=== PATIENT | female | born 1960 | race Caucasian/White ===

== ENCOUNTER 2017-01-20 04:33 | Emergency (ER) | payer OTHER ==
[~2017-01-20] VITALS: Ht 172.7 cm; Wt 104.3 kg
--- NOTE | 2017-01-20 04:50 | NUR ---
Patient to ER bed 07 to gown for evaluation. Side rails up. Report given to Vidya.
[2017-01-20 04:54] VITALS: BP 166/129; PULSE 103; RESP 16; TEMP 98.1; O2SAT 99
--- NOTE | 2017-01-20 05:00 | NUR ---
pt in bed 7 with c/o h/a and high bp. Dr Chevy love.
--- NOTE | 2017-01-20 05:22 | NUR ---
ER at bedside examining patient.
[2017-01-20] MEDS ORDERED: ACETAMINOPHEN 500 MG TABLET PO ONE (05:30)
[2017-01-20] MEDS ORDERED: KETOROLAC TROMETHAMINE 30 MG VIAL IVP ONE (05:30)
[2017-01-20] MEDS ORDERED: DIPHENHYDRAMINE INJ 50 MG/ML VIAL IVP ONE (05:30)
[2017-01-20] MEDS ORDERED: PROCHLORPERAZINE EDISYLATE 10 MG/2 ML VIAL IVP ONE (05:30)
[2017-01-20] MEDS ORDERED: METOPROLOL TARTRATE 25 MG TABLET PO ONE (05:45)
[2017-01-20] MEDS ORDERED: LOSARTAN POTASSIUM 50 MG TABLET (COZAAR) PO ONE ×2 (05:45→06:15)
--- NOTE | 2017-01-20 05:45 | NUR ---
Medication given as per MD Ordered. Tolerated well.
[2017-01-20] MEDS ORDERED: NAPROXEN 250 MG TABLET PO ONE (06:00)
[2017-01-20] MEDS ORDERED: traMADol HCL HCL 50 MG TABLET (ULTRAM) PO ONE (06:00)
[2017-01-20] MEDS ORDERED: LOSARTAN POTASSIUM 50 MG TABLET (COZAAR) ONE (06:02)
--- NOTE | 2017-01-20 06:10 | NUR ---
ER at bedside examining patient.
[2017-01-20 06:42] LABS: BASOPHILS % (AUTO) 0.8 % (0.0-2.0); EOSINOPHILS # (AUTO) 0.1 K/uL (0.0-0.4); EOSINOPHILS % (AUTO) 1.8 % (0.0-4.0); HEMATOCRIT 42.5 % (36-48); LYMPHOCYTES # (AUTO) 0.9 K/uL (1.0-5.5); LYMPHOCYTES % (AUTO) 14.5 % (20.5-51.5); MEAN CORPUSCULAR HEMOGLOBIN 29 pg (27-31); MEAN CORPUSCULAR HGB CONC 33 % (32-36); MEAN CORPUSCULAR VOLUME 87 fL (79.0-98.0); MONOCYTES # (AUTO) 0.3 K/uL (0.0-1.0); MONOCYTES % (AUTO) 5.6 % (1.7-9.3); NEUTROPHILS # (AUTO) 4.9 K/uL (1.8-7.7); NEUTROPHILS % (AUTO) 77.3 % (40.0-70.0); PLATELET COUNT (AUTO) 120 K/uL (130-430); RED BLOOD CELL COUNT(AUTO) 4.91 MIL/uL (4.2-6.2); RED CELL DISTRIBUTION WIDTH 14.5 % (9.0-15.0); WHITE BLOOD COUNT (AUTO) 6.2 K/uL (4.8-10.8)
[2017-01-20 06:48] LABS: CREATININE 0.7 mg/dL (0.55-1.30); POTASSIUM 4.1 mmol/L (3.5-5.1)
[2017-01-20 06:53] LABS: ALBUMIN 3.7 g/dL (3.4-4.8); TOTAL BILIRUBIN 0.5 mg/dL (0.0-1.0); TOTAL PROTEIN, SERUM 7.6 g/dL (6.4-8.3)
--- NOTE | 2017-01-20 07:11 | NUR ---
received pt from evening or night nurse supervisor Vidya HAMPTON.
--- NOTE | 2017-01-20 07:12 | NUR ---
pt is lying in bed resting.awake alert oritented,no distress noted.
[2017-01-20 07:20] VITALS: BP 133/88; PULSE 58; RESP 18; TEMP 98.9; O2SAT 99
--- NOTE | 2017-01-20 07:20 | NUR ---
Patient given written and verbal discharge instructions and verbalizes understanding. ER MD discussed with patient the results and treatment provided. Given copies of tests performed in ER. Patient in stable condition. ID arm band removed. Rx of given. Patient educated on pain management and to follow up with PMD. Pain Scale . Opportunity for questions provided and answered.
== END 2017-01-20 07:20 | disposition home or self-care (01) ==
LOC: SED 04:33
DX: I10 Essential (primary) hypertension (principal); R11.2 Nausea with vomiting, unspecified
CPT/HCPCS: 36415; 80053; 85025; 93005; 99285

== ENCOUNTER 2017-02-05 08:56 | Emergency (ER) | payer OTHER ==
[~2017-02-05] VITALS: Ht 172.7 cm; Wt 99.8 kg
[2017-02-05 09:08] VITALS: BP 159/101; PULSE 84; RESP 16; TEMP 97.4; O2SAT 98
--- NOTE | 2017-02-05 09:13 | NUR ---
Placed in room 2 . Placed on supervisor instrument mechanics, blood pressure machine and pulse oximeter. To gown for exam. Side rails up. Report given to Bunny HAMPTON.
--- NOTE | 2017-02-05 09:15 | NUR ---
ER at bedside examining patient.
--- NOTE | 2017-02-05 09:17 | NUR ---
Pt AAOx 4 c/o palpitations and htn.Pt has recent diagnosis of htn and one day of taking antihypertensives. Pt has no acute distress noted. EKG done NSR given to to read. Pt speaking in full sentences w/o SOB.
--- NOTE | 2017-02-05 09:44 | NUR ---
Pt received orthostatic VS. Pt tolerated well. Pt denies dizziness.
[2017-02-05 09:55] LABS: BASOPHILS % (AUTO) 0.5 % (0.0-2.0); EOSINOPHILS # (AUTO) 0.1 K/uL (0.0-0.4); EOSINOPHILS % (AUTO) 1.7 % (0.0-4.0); HEMATOCRIT 42.2 % (36-48); HEMOGLOBIN 14.1 g/dL (12.0-16.0); LYMPHOCYTES # (AUTO) 0.9 K/uL (1.0-5.5); LYMPHOCYTES % (AUTO) 18.9 % (20.5-51.5); MEAN CORPUSCULAR HEMOGLOBIN 28 pg (27-31); MEAN CORPUSCULAR HGB CONC 34 % (32-36); MEAN CORPUSCULAR VOLUME 84 fL (79.0-98.0); MONOCYTES # (AUTO) 0.3 K/uL (0.0-1.0); MONOCYTES % (AUTO) 6.3 % (1.7-9.3); NEUTROPHILS # (AUTO) 3.7 K/uL (1.8-7.7); NEUTROPHILS % (AUTO) 72.6 % (40.0-70.0); PLATELET COUNT (AUTO) 109 K/uL (130-430); RED BLOOD CELL COUNT(AUTO) 5.05 MIL/uL (4.2-6.2); RED CELL DISTRIBUTION WIDTH 14.4 % (9.0-15.0)
[2017-02-05 10:01] LABS: CALCIUM 9.5 mg/dL (8.4-11.0); CREATININE 0.86 mg/dL (0.55-1.30); POTASSIUM 4.7 mmol/L (3.5-5.1)
[2017-02-05 10:16] LABS: ALBUMIN 4.1 g/dL (3.4-4.8); FREE T4 (FREE THYROXINE) 0.9 ng/dL (0.6-1.6); THYROID STIMULATING HORMONE 1.69 uIu/mL (0.34-4.82); TOTAL BILIRUBIN 0.6 mg/dL (0.0-1.0); TOTAL PROTEIN, SERUM 7.9 g/dL (6.4-8.3)
--- NOTE | 2017-02-05 10:30 | NUR ---
Pt's BP WNL , no acute distress at this time, continuing to monitor.
[2017-02-05 11:25] VITALS: BP 129/72; PULSE 72; RESP 16; TEMP 97.4; O2SAT 98
--- NOTE | 2017-02-05 11:25 | NUR ---
Patient given written and verbal discharge instructions and verbalizes understanding. ER MD discussed with patient the results and treatment provided. Patient in stable condition. ID arm band removed. Patient educated on pain management and to follow up with PMD. Pain Scale 0/10 . Opportunity for questions provided and answered.
== END 2017-02-05 11:25 | disposition home or self-care (01) ==
LOC: SED 08:56
DX: R00.2 Palpitations (principal); R07.89 Other chest pain; I10 Essential (primary) hypertension
CPT/HCPCS: 36415; 71010; 80053; 80061; 83880; 84439; 84443-TC; 84484; 85025; 93005; 99285

== ENCOUNTER 2017-02-18 00:37 | Emergency (ER) | payer OTHER ==
[~2017-02-18] VITALS: Ht 172.7 cm; Wt 95.3 kg
[2017-02-18 00:40] VITALS: BP_SYST 157
[2017-02-18] MEDS ORDERED: LORazepam 1 MG TABLET PO ONE (01:45)
[2017-02-18 02:09] LABS: EOSINOPHILS # (AUTO) 0.1 K/uL (0.0-0.4); LYMPHOCYTES # (AUTO) 1.3 K/uL (1.0-5.5); MEAN CORPUSCULAR VOLUME 85 fL (79.0-98.0); MONOCYTES # (AUTO) 0.4 K/uL (0.0-1.0); NEUTROPHILS # (AUTO) 3.6 K/uL (1.8-7.7); WHITE BLOOD COUNT (AUTO) 5.4 K/uL (4.8-10.8)
[2017-02-18 02:14] LABS: BASOPHILS % (AUTO) 0.7 % (0.0-2.0); EOSINOPHILS % (AUTO) 2.1 % (0.0-4.0); HEMATOCRIT 41.4 % (36-48); HEMOGLOBIN 13.7 g/dL (12.0-16.0); LYMPHOCYTES % (AUTO) 24.2 % (20.5-51.5); MEAN CORPUSCULAR HEMOGLOBIN 28 pg (27-31); MEAN CORPUSCULAR HGB CONC 33 % (32-36); MONOCYTES % (AUTO) 7.6 % (1.7-9.3); NEUTROPHILS % (AUTO) 65.4 % (40.0-70.0); RED BLOOD CELL COUNT(AUTO) 4.86 MIL/uL (4.2-6.2); RED CELL DISTRIBUTION WIDTH 13.7 % (9.0-15.0)
[2017-02-18 02:21] LABS: CALCIUM 9.6 mg/dL (8.4-11.0); CREATININE 0.78 mg/dL (0.55-1.30); POTASSIUM 4.3 mmol/L (3.5-5.1)
[2017-02-18 02:26] LABS: TOTAL BILIRUBIN 0.5 mg/dL (0.0-1.0); TOTAL PROTEIN, SERUM 7.5 g/dL (6.4-8.3)
[2017-02-18] MEDS ORDERED: NACL 0.9% 1,000 ML IV ONE (02:30)
[2017-02-18 02:42] LABS: PLATELET COUNT (AUTO) 98 K/uL (130-430)
[2017-02-18 03:46] VITALS: BP_SYST 157
== END 2017-02-18 03:46 | disposition home or self-care (01) ==
LOC: SED 00:37
DX: R51 Headache (principal); I10 Essential (primary) hypertension
CPT/HCPCS: 36415; 70450; 80053; 85025; 96360; 99285; J7030

== ENCOUNTER 2017-02-20 00:52 | Emergency (ER) | payer OTHER ==
[~2017-02-20] VITALS: Ht 172.7 cm; Wt 95.3 kg
[2017-02-20 00:55] VITALS: BP_SYST 144
[2017-02-20 02:15] VITALS: BP_SYST 133
[2017-02-21 15:27] LABS: ABG TOTAL HEMOGLOBIN 14.4 G/dL (12.0-18.0); BLOOD GAS BASE EXCESS -1.5 mmol/L (-3.0-3.0); BLOOD GAS COHb% 0.2 % (0.5-1.5); BLOOD GAS HHB 4.1 % (0.0-6.0); BLOOD O2Hb% 95.4 % (94.0-97.0)
== END 2017-02-20 02:15 | disposition home or self-care (01) ==
LOC: SED 00:52
DX: Z00.8 Encounter for other general examination (principal); I10 Essential (primary) hypertension
CPT/HCPCS: 36600; 82803-TC; 99283

== ENCOUNTER 2017-03-03 00:12 | Inpatient (IN) | payer OTHER ==
[2017-03-03] VITALS (9 sets, daily range): BP systolic 106–166; BP diastolic 67–92; PULSE 74–96; RESP 16–20; TEMP 97–98.9; O2SAT 93–98
[~2017-03-03] VITALS: Ht 172.7 cm; Wt 98.4 kg
--- NOTE | 2017-03-03 00:25 | NUR ---
Placed in room 8 . Placed on library monitor, blood pressure machine and pulse oximeter. To gown for exam. Side rails up.
--- NOTE | 2017-03-03 00:26 | NUR ---
MD Vu at bedside examining pt
[2017-03-03 01:07] LABS: BILIRUBIN,URINE NEGATIVE (NEGATIVE); BLOOD, URINE 1+ (NEGATIVE); CLARITY/URINE CLEAR (CLEAR); COLOR,URINE YELLOW (YELLOW); GLUCOSE,URINE NEGATIVE (NEGATIVE); KETONES,URINE NEGATIVE (NEGATIVE); LEUKOCYTE ESTERASE ,URINE TRACE (NEGATIVE); NITRITE, URINE NEGATIVE (NEGATIVE); PROTEIN URINE NEGATIVE (NEGATIVE); UROBILINOGEN,URINE 0.2 (0.2-1.0)
[2017-03-03 01:09] LABS: BASOPHILS % (AUTO) 0.5 % (0.0-2.0); EOSINOPHILS # (AUTO) 0.1 K/uL (0.0-0.4); EOSINOPHILS % (AUTO) 2.1 % (0.0-4.0); HEMATOCRIT 43.5 % (36-48); HEMOGLOBIN 14.4 g/dL (12.0-16.0); LYMPHOCYTES # (AUTO) 1.5 K/uL (1.0-5.5); LYMPHOCYTES % (AUTO) 25.2 % (20.5-51.5); MEAN CORPUSCULAR HEMOGLOBIN 28 pg (27-31); MEAN CORPUSCULAR HGB CONC 33 % (32-36); MEAN CORPUSCULAR VOLUME 85 fL (79.0-98.0); MONOCYTES # (AUTO) 0.4 K/uL (0.0-1.0); MONOCYTES % (AUTO) 7.6 % (1.7-9.3); NEUTROPHILS # (AUTO) 3.9 K/uL (1.8-7.7); NEUTROPHILS % (AUTO) 64.6 % (40.0-70.0); RED BLOOD CELL COUNT(AUTO) 5.15 MIL/uL (4.2-6.2); RED CELL DISTRIBUTION WIDTH 13.7 % (9.0-15.0); WHITE BLOOD COUNT (AUTO) 5.9 K/uL (4.8-10.8)
[2017-03-03 01:17] LABS: CALCIUM 9.5 mg/dL (8.4-11.0); CREATININE 0.88 mg/dL (0.55-1.30); PLATELET COUNT (AUTO) 98 K/uL (130-430); POTASSIUM 3.6 mmol/L (3.5-5.1)
[2017-03-03 01:21] LABS: BACTERIA,URINE FEW /HPF (None Seen); MUCUS,URINE None Seen /LPF (None Seen); RBC,URINE 0-3 /HPF (0-3)
--- NOTE | 2017-03-03 01:25 | NUR ---
Pt in bed, denies distress. Will continue to monitor
[2017-03-03 01:33] LABS: FREE T4 (FREE THYROXINE) 1.2 ng/dL (0.6-1.6); THYROID STIMULATING HORMONE 1.97 uIu/mL (0.34-4.82); TOTAL BILIRUBIN 0.9 mg/dL (0.0-1.0); TOTAL PROTEIN, SERUM 7.8 g/dL (6.4-8.3)
[2017-03-03] MEDS ORDERED: LISI10TA5 PO (02:48)
--- NOTE | 2017-03-03 02:48 | NUR ---
Medication reconciliation completed with information provided by - verbal from patient. Any prior medication reconciliation on file was reviewed and corrected.
[2017-03-03] MEDS ORDERED: IPRATROPIUM BROM 0.5 MG/2.5 ML VIAL.NEB (ATROVENT) INH PRN (03:15)
[2017-03-03] MEDS ORDERED: ALBUTEROL SULFATE 0.083% 2.5 MG/3 ML VIAL.NEB INH PRN (03:15)
--- NOTE | 2017-03-03 03:20 | NUR ---
Patient will be admitted to care of DR TELLES. Admitted to MS unit. Will go to room 135. Belongings list completed. Summary report printed. Report given to BERTA.
--- NOTE | 2017-03-03 03:38 | NUR ---
Note kinjal in ED - 03/03/17 at 0358 by [email or web address] Patient will be admitted to care of . Admitted to med-surg unit. Will go to room 125B. Belongings list completed. Summary report printed. Report given to renuka HAMPTON.
--- NOTE | 2017-03-03 03:42 | NUR ---
ADMISSION NOTE Received patient from ER via gurney. Patient admitted with diagnosis of neck mass. Patient is awake, alert, oriented X4. Patient oriented to hospital room, call light, toileting, pain management and safety-teach back done. Patient informed that Philipp RN will be her nurse and that their room number is 125B. Personal belongings checked and Belongings List documented. Call light within reach.
--- NOTE | 2017-03-03 04:02 | NUR ---
Consult Called Reason for Consultation: Neck Mass Was consult Called? Yes Person who was notified:Paulo Consulting Physician: Marcus Grubbs MD ( Dr. Hare research home economist) Prescription Clerk Lenses Specialty: Otolaryngology Prescription Clerk Lenses Order by Dr Lind
--- NOTE | 2017-03-03 05:42 | NUR ---
ROUNDS PT IS RESTING COMFORTABLY IN BED WITH @ BEDSIDE. NO S/S OF PAIN OR ANY DISTRESS NOTED. BED IN LOW POSITION WITH CALL LIGHT WITHIN REACH;WILL CONT TO MONITOR.
--- NOTE | 2017-03-03 06:55 | NUR ---
FINAL NOTES PT IS RESTING COMFORTABLY WITH @ BEDSIDE. NO S/S OF PAIN OR ANY DISTRESS NOTED. V/S ARE WITHIN LIMITS. ALL NEEDS MET AND ANTICIPATED BY NOC NURSES. BED IN LOW POSITION WITH SIDE UP X3 FOR SAFETY. CALL LIGHT WITHIN REACH; ENDORSED.
--- NOTE | 2017-03-03 07:42 | NUR ---
AM Rounds: Received pt sitting semi-fowlers in bed. No acute signs of distress noted at this time. IV intact to RUE with no redness or swelling noted to site. A&Ox4. Pt denies pain. Pt is able to make needs known and verbalize understanding. Call light in reach. Continue to monitor.
--- NOTE | 2017-03-03 08:12 | NUR ---
CALLED SPEECH THERAPY CONSULT TO ANTHONY RE: SWALLOWING EVAL . LEFT A VOICE MESSAGE
--- NOTE | 2017-03-03 09:03 | NUR ---
CALLED ENDOCRINE CONSULT TO DR JOAQUIN, RE: LUANN. SPOKE TO GWYN
[2017-03-03] MEDS: LISINOPRIL 10 MG TABLET (PRINIVIL) PO SCH (09:06)
--- NOTE | 2017-03-03 09:26 | NUR ---
RN Rounds: AM meds given per MD order. Pt tolerates well. Pt refuse CT of head, Dr. Lind aware. No other needs noted at this time. Call light in reach. Continue to monitor.
[2017-03-03 10:01] LABS: FREE T4 (FREE THYROXINE) 1.2 ng/dL (0.6-1.6); THYROID STIMULATING HORMONE 2.35 uIu/mL (0.34-4.82)
[2017-03-03] MEDS: cefTRIAXone 1 GM IVPB PREMIX 50 ML IV SCH (10:07)
--- NOTE | 2017-03-03 11:37 | NUR ---
Called Dr. Lind: Called Dr. Lind to make her aware that Dr. Hare wants to speak with her regarding the patient at [phone]. Dr. Lind states "Ok I'll call you later for the number. Put the consult on hold for now". Pt sitting semi-fowlers in bed. No acute signs of distress noted. Call light in reach. Continue to monitor.
--- NOTE | 2017-03-03 13:35 | NUR ---
Rounds: Pt sitting semi-fowlers in bed. No acute signs of distress noted at this time. IV intact to RUE with no redness or swelling noted to site. Call light in reach. Continue to monitor.
--- NOTE | 2017-03-03 14:40 | NUR ---
CALLED ENT MD DR FERRER, FLAT OPTICAL ELEMENT MAKER FOR DR RAMONA Ruth RE: CANCELLATION OF CONSULT. SPOKE TO AJMAL
--- NOTE | 2017-03-03 15:04 | NUR ---
ANTHONY SPEECH THERAPIST WILL COME TOMORROW MORNING 03/04/2017
--- NOTE | 2017-03-03 15:53 | NUR ---
Rounds: Pt sitting semi-fowlers in bed. No acute signs of distress noted at this time. IV intact to RUE. Call light in reach. Dr. Martínez here to see patient. Continue to monitor.
--- NOTE | 2017-03-03 16:11 | NUR ---
Page Dr. Lind: Page Dr. Lind to make her aware that Dr. Martínez will not see patient. Awaiting page back at this time.
--- NOTE | 2017-03-03 18:22 | NUR ---
Page Dr. Lind: Spoke with Dr. Sue, he will be back tomorrow to see patient. Called Dr. Lind to request consult for Dr. Sue. Awaiting page back.
--- NOTE | 2017-03-03 19:25 | NUR ---
initial nursing notes: Patient is awake. Patient is watching television. Patient has a saline lock on the right AC. Patient's family member at the bedside.
--- NOTE | 2017-03-03 21:25 | NUR ---
nursing rounds: Patient is resting in bed. Patient denies of having pain.
--- NOTE | 2017-03-03 22:42 | NUR ---
Consultation Paged Reason for consult: Goiter Was consult called: Yes Person who was notified: Summer Consulting Physician: Lorne Sanchez Medical Writer Specialty: Endo Medical Writer notified exchange to place consult for the morning of 03/04/2017.
--- NOTE | 2017-03-03 23:25 | NUR ---
nursing rounds: Patient is asleep. Patient has no shortness of breath.
--- NOTE | 2017-03-03 23:45 | NUR ---
PATIENT FAMILY MEMBER AT BED SIDE STATED THE PATIENT NEEDS HER REST
--- NOTE | 2017-03-04 01:25 | NUR ---
nursing rounds: Patient is sleeping in bed. Patient has no respiratory distress.
--- NOTE | 2017-03-04 03:25 | NUR ---
nursing rounds: Patient asleep in bed. Bed in lowest position. Siderails up X 2.
--- NOTE | 2017-03-04 05:25 | NUR ---
nursing rounds: Patient calmly resting in bed. Call light within patient's reach.
[2017-03-04 05:35] VITALS: BP 127/74; PULSE 76; RESP 16; TEMP 97.6; O2SAT 98
--- NOTE | 2017-03-04 07:43 | NUR ---
closing nursing notes: Patient calmly resting in bed. Patient is in no acute respiratory distress. No episodes of fall and no injuries throughout the porcelain enamel sprayer. Provided nursing report to incoming morning shift nurse, BERTA Hagen, at patient's bedside.
--- NOTE | 2017-03-04 08:25 | NUR ---
AM ROUNDS Pt A/O..sitting up in bed..Denies pain at this time...HL to RAC flushes well..Pt denies difficulty swallowing..Pt ambulates ad gallo with steady gait...Pt has a noticeable bump to left neck, denies pain...Awaiting swallow evaluation and biopsy...Call light/phone w/in reach...Will cont to monitor
[2017-03-04 08:42] VITALS: BP 113/73; PULSE 77; RESP 18; TEMP 97.5; O2SAT 98
[2017-03-04] MEDS: cefTRIAXone 1 GM IVPB PREMIX 50 ML IV SCH (09:23)
[2017-03-04] MEDS: LISINOPRIL 10 MG TABLET (PRINIVIL) PO SCH (09:53)
--- NOTE | 2017-03-04 09:55 | NUR ---
SPEECH THERAPIST AT BEDSIDE
--- NOTE | 2017-03-04 09:59 | NUR ---
S.T. SWALLOW EVAL COMPLETED. PT PRESENTS W/ FUNCTIONAL OROPHARYNGEAL SWALLOW W/ NO S/S OF ASPIRATION. REC: CONTINUE REGULAR DIET. NURSE ZULEMA NOTIFIED. [id number] CH G8997 CH G8998 CH NOMS LEVEL 7
[2017-03-04 10:21] LABS: T4 (THYROXINE) 8.8 ug/dL (4.5-12.0)
--- NOTE | 2017-03-04 11:01 | NUR ---
Consults Order received for two consults. The first consult is with Dr Crowe. Dr Crowe has spoken to Dr Garrido re: pt. Second consult is for numbness with Dr Garces. Spoke with Rebeca at his office [phone]. Will follow up as needed.
[2017-03-04 12:00] VITALS: BP 126/84; PULSE 89; RESP 18; TEMP 97.4; O2SAT 95
--- NOTE | 2017-03-04 13:00 | NUR ---
ROUNDS PT STABLE...PT COMFORTABLE...DENIES PAIN AT THIS TIME... AT BEDSIDE....WILL CONT TO L[place]
--- NOTE | 2017-03-04 15:00 | NUR ---
ROUNDS PT STABLE..NO CHANGES....SITTING AT EDGE OF BED VISITING WITH ...WILL CONT TO MONITOR
[2017-03-04 16:00] VITALS: BP 104/76; PULSE 91; RESP 18; TEMP 98.1; O2SAT 95
--- NOTE | 2017-03-04 18:00 | NUR ---
DR QUEEN AT BEDSIDE
--- NOTE | 2017-03-04 18:29 | NUR ---
PT SITTING UP IN BED EATING DINNER PT STABLE
--- NOTE | 2017-03-04 18:30 | NUR ---
SKIP TRACER AT BEDSIDE SPEAKING WITH PT
--- NOTE | 2017-03-04 20:00 | NUR ---
Initial note Lying in bed awake, alert & oriented x4. Family at bedside. Dr. Sue just saw patient. Vital signs within normal limits, denies pain or discomfort. Right ac IV access intact & patent. Able to ambulate without assist. Instructed on plan of care and scheduled MRI tomorrow. Stated will fuill up consent at her bedside. Instructed on use of call light & to notify staff if in need of assistance. Verbalized understanding. Call light within reach.
[2017-03-04 23:57] VITALS: BP 107/77; PULSE 98; RESP 18; TEMP 97.8; O2SAT 97
--- NOTE | 2017-03-05 | NUR ---
Rounds Resting quietly with eyes closed, easily aroused. Respirations even and nonlabored. No c/o pain or discomfort. Call light within reach.
--- NOTE | 2017-03-05 02:00 | NUR ---
Rounds Resting with eyes closed, no apparent distress. respirations even and non-labored. Call light within reach.
[2017-03-05 05:36] VITALS: BP 109/71; PULSE 64; RESP 16; TEMP 97.4; O2SAT 98
--- NOTE | 2017-03-05 07:00 | NUR ---
Closing note lying in bed reading, no apparent distress. No c/o pain or discomfort. MRI consent completed. All needs attended to. Will endorse to RUDY Shaw via [employer] method.
--- NOTE | 2017-03-05 07:35 | NUR ---
AM ROUNDS Pt A/O..sitting up in bed on cell phone....Denies pain at this time...HL to RAC flushes well..Pt denies difficulty swallowing..Pt ambulates ad gallo with steady gait...Pt has a noticeable bump to left neck, denies pain..awaiting MRI today...Call light/phone w/in reach...Will cont to monitor
--- NOTE | 2017-03-05 09:15 | NUR ---
TRANSPORTED TO MRI VIA PT STABLE UPON TRANSPORT
[2017-03-05 09:27] VITALS: BP 118/74; PULSE 95; RESP 18; TEMP 98.6; O2SAT 97
[2017-03-05] MEDS: LISINOPRIL 10 MG TABLET (PRINIVIL) PO SCH (10:21)
[2017-03-05] MEDS: cefTRIAXone 1 GM IVPB PREMIX 50 ML IV SCH (10:27)
--- NOTE | 2017-03-05 11:00 | NUR ---
ROUNDS PT STABLE..NO CHANGES...AWAITING MD... AT BEDSIDE
[2017-03-05 11:22] VITALS: BP 121/73; PULSE 75; RESP 16; TEMP 97.2; O2SAT 98
[2017-03-05 12:39] VITALS: BP 121/73; PULSE 75; RESP 16; TEMP 97.2; O2SAT 98
== END 2017-03-05 14:30 | disposition home or self-care (01) | DRG 645 ==
LOC: SED 00:12 → SMU 03:14 → STU 03-04 18:53
PROVIDERS: ATTEND Internal Medicine Hospice and Palliative Medicine
PROC: 0GBG3ZX Excision of Left Thyroid Gland Lobe, Percutaneous Approach, Diagnostic (ICD-10-PCS; principal; 2017-03-04)
DX: E04.1 Nontoxic single thyroid nodule (principal); I10 Essential (primary) hypertension; J44.9 Chronic obstructive pulmonary disease, unspecified; E05.20 Thyrotoxicosis with toxic multinodular goiter without thyrotoxic crisis or storm; F41.9 Anxiety disorder, unspecified; Z79.899 Other long term (current) drug therapy; R20.0 Anesthesia of skin; G50.1 Atypical facial pain
CPT/HCPCS: 36415; 70490; 70551; 76536-TC; 76942-TC; 80053; 81000-TC; 84436; 84439; 84443-TC; 84479; 85025; 87086; 88172; 88173; 88305; 88307; 92610-GN; 93005; 93880; 99285; J0696; J7120

== ENCOUNTER 2017-03-23 20:03 | Emergency (ER) | payer OTHER ==
[~2017-03-23] VITALS: Ht 170.2 cm; Wt 95.3 kg
[2017-03-23 20:03] VITALS: BP 141/80; PULSE 66; RESP 20; TEMP 97.2; O2SAT 94
[~2017-03-23 20:03] MED LIST: LISI10TA5 PO
--- NOTE | 2017-03-23 22:10 | NUR ---
Patient to ER bed 3 to gown for evaluation. Side rails up. Report given to Kalina HAMPTON.
--- NOTE | 2017-03-23 22:11 | NUR ---
Timi layton in ED - 03/23/17 at 2241 by ITZEL Patient to bed 3 to [facility] for evaluation. Side rails up. Report given to Paulo HAMPTON.
--- NOTE | 2017-03-23 22:15 | NUR ---
pt. to ER AAOx4 c/o Chest pain for 2 HOURS AFTER TAKING BETABLOCKER , states THYROID PAIN related to the mass in her throat, states that she has an appointment for surgical removal of the lumps, states she is here for lipid panel testing
--- NOTE | 2017-03-23 22:30 | NUR ---
dr. alcocer at bedside examining the pt.
[2017-03-23 22:59] LABS: BILIRUBIN,URINE NEGATIVE (NEGATIVE); CLARITY/URINE SL HAZY (CLEAR); COLOR,URINE YELLOW (YELLOW); GLUCOSE,URINE NEGATIVE (NEGATIVE); KETONES,URINE NEGATIVE (NEGATIVE); LEUKOCYTE ESTERASE ,URINE 1+ (NEGATIVE); NITRITE, URINE NEGATIVE (NEGATIVE); PH,URINE 5.5 (5.0-8.0); PROTEIN URINE NEGATIVE (NEGATIVE); UROBILINOGEN,URINE 0.2 (0.2-1.0)
[2017-03-23 23:03] LABS: BLOOD, URINE TRACE (NEGATIVE)
[2017-03-23 23:04] LABS: BASOPHILS % (AUTO) 0.5 % (0.0-2.0); EOSINOPHILS # (AUTO) 0.2 K/uL (0.0-0.4); EOSINOPHILS % (AUTO) 2.6 % (0.0-4.0); HEMOGLOBIN 14.6 g/dL (12.0-16.0); LYMPHOCYTES # (AUTO) 1.7 K/uL (1.0-5.5); LYMPHOCYTES % (AUTO) 23.6 % (20.5-51.5); MEAN CORPUSCULAR HEMOGLOBIN 28 pg (27-31); MEAN CORPUSCULAR HGB CONC 33 % (32-36); MEAN CORPUSCULAR VOLUME 85 fL (79.0-98.0); MONOCYTES # (AUTO) 0.5 K/uL (0.0-1.0); MONOCYTES % (AUTO) 6.5 % (1.7-9.3); NEUTROPHILS # (AUTO) 4.8 K/uL (1.8-7.7); NEUTROPHILS % (AUTO) 66.8 % (40.0-70.0); PLATELET COUNT (AUTO) 144 K/uL (130-430); RED BLOOD CELL COUNT(AUTO) 5.16 MIL/uL (4.2-6.2); WHITE BLOOD COUNT (AUTO) 7.2 K/uL (4.8-10.8)
[2017-03-23 23:07] LABS: ANION GAP 6 (5-15); CALCIUM 9.6 mg/dL (8.4-11.0); CHLORIDE 105 mmol/L (98-107); CREATININE 0.85 mg/dL (0.55-1.30); GLUCOSE 118 mg/dL (70-99); SODIUM SERUM 143 mmol/L (136-145); UREA NITROGEN, BLOOD 20 mg/dL (8-21)
[2017-03-23 23:09] LABS: GFR AFRICAN AMERICAN 89 mL/min (>90)
[2017-03-23 23:12] LABS: RBC,URINE 0-3 /HPF (0-3)
[2017-03-23 23:13] LABS: BACTERIA,URINE FEW /HPF (None Seen)
[2017-03-23 23:14] LABS: CALCIUM OXALATE CRYSTALS,UR 0-10 /HPF (None Seen); MUCUS,URINE None Seen /LPF (None Seen)
--- NOTE | 2017-03-23 23:15 | NUR ---
Report received from Kalina HAMPTON
[2017-03-23 23:24] LABS: ALANINE AMINOTRANSFERASE 21 U/L (12-78); ASPARTATE AMINOTRANSFERASE 21 U/L (10-37); FREE T4 (FREE THYROXINE) 1.1 ng/dl (0.8-1.5); THYROID STIMULATING HORMONE 2.98 uIu/mL (0.36-3.74); TOTAL BILIRUBIN 0.7 mg/dL (0.0-1.0); TOTAL PROTEIN, SERUM 7.8 g/dL (6.4-8.3)
--- NOTE | 2017-03-23 23:50 | NUR ---
MD Cabello at bedside discussing with pt
[2017-03-24 01:35] VITALS: BP 138/77; PULSE 68; RESP 18; TEMP 97.2; O2SAT 96
--- NOTE | 2017-03-24 01:35 | NUR ---
Patient given written and verbal discharge instructions and verbalizes understanding. ER MD Cabello discussed with patient the results and treatment provided. Patient in stable condition. ID arm band removed. Rx of nitrofurantoin given. Patient educated on pain management and to follow up with PMD. Pain Scale 0/10 Opportunity for questions provided and answered.
[2017-03-25 10:18] LABS: T4 (THYROXINE) 8.4 ug/dL (4.5-12.0)
== END 2017-03-24 01:35 | disposition home or self-care (01) ==
LOC: SED 20:03
DX: E07.89 Other specified disorders of thyroid (principal); N39.0 Urinary tract infection, site not specified; I10 Essential (primary) hypertension
CPT/HCPCS: 36415; 80053; 81000-TC; 84436; 84439; 84443-TC; 84479; 84480; 84484; 85025; 87086; 93005; 99285

== ENCOUNTER 2017-04-29 13:36 | Emergency (ER) | payer OTHER ==
[~2017-04-29] VITALS: Ht 172.7 cm; Wt 95.7 kg
[2017-04-29 13:59] VITALS: BP_SYST 147
[2017-04-29 14:35] LABS: BASOPHILS % (AUTO) 0.5 % (0.0-2.0); EOSINOPHILS # (AUTO) 0.1 K/uL (0.0-0.4); EOSINOPHILS % (AUTO) 2.1 % (0.0-4.0); HEMATOCRIT 41.2 % (36-48); HEMOGLOBIN 13.6 g/dL (12.0-16.0); LYMPHOCYTES % (AUTO) 16.6 % (20.5-51.5); MEAN CORPUSCULAR HEMOGLOBIN 28 pg (27-31); MEAN CORPUSCULAR HGB CONC 33 % (32-36); MEAN CORPUSCULAR VOLUME 86 fL (79.0-98.0); MONOCYTES # (AUTO) 0.3 K/uL (0.0-1.0); MONOCYTES % (AUTO) 5.7 % (1.7-9.3); NEUTROPHILS # (AUTO) 4.5 K/uL (1.8-7.7); NEUTROPHILS % (AUTO) 75.1 % (40.0-70.0); RED BLOOD CELL COUNT(AUTO) 4.78 MIL/uL (4.2-6.2); WHITE BLOOD COUNT (AUTO) 5.9 K/uL (4.8-10.8)
[2017-04-29 14:40] LABS: PLATELET COUNT (AUTO) 108 K/uL (130-430)
[2017-04-29 14:45] LABS: CALCIUM 9.3 mg/dL (8.4-11.0); CREATININE 0.74 mg/dL (0.55-1.30)
[2017-04-29 14:50] LABS: ALBUMIN 3.8 g/dL (3.4-4.8); TOTAL BILIRUBIN 0.9 mg/dL (0.0-1.0); TOTAL PROTEIN, SERUM 7.6 g/dL (6.4-8.3)
[2017-04-29 15:01] LABS: INR 1.1 (0.8-1.2); PROTHROMBIN TIME 11.5 SECS (9.5-12.5)
[2017-04-29 15:53] LABS: FREE T4 (FREE THYROXINE) 1.5 ng/dL (0.6-1.6); THYROID STIMULATING HORMONE 0.35 uIu/mL (0.34-4.82)
[2017-04-29 16:50] LABS: BILIRUBIN,URINE NEGATIVE (NEGATIVE); BLOOD, URINE NEGATIVE (NEGATIVE); CLARITY/URINE CLEAR (CLEAR); COLOR,URINE YELLOW (YELLOW); GLUCOSE,URINE NEGATIVE (NEGATIVE); KETONES,URINE TRACE (NEGATIVE); LEUKOCYTE ESTERASE ,URINE TRACE (NEGATIVE); NITRITE, URINE NEGATIVE (NEGATIVE); PROTEIN URINE NEGATIVE (NEGATIVE)
[2017-04-29 17:18] LABS: BACTERIA,URINE FEW /HPF (None Seen); MUCUS,URINE 2+ /LPF (None Seen); RBC,URINE NONE SEEN /HPF (0-3)
[2017-04-29 17:51] VITALS: BP_SYST 142
== END 2017-04-29 17:51 | disposition home or self-care (01) ==
LOC: SED 13:36
DX: R00.2 Palpitations (principal); R07.89 Other chest pain; I10 Essential (primary) hypertension; R51 Headache
CPT/HCPCS: 36415; 71020-TC; 80053; 81000-TC; 84439; 84443-TC; 84480; 84484; 85025; 85610-TC; 85730-TC; 87086; 93005; 99285

== ENCOUNTER 2017-09-12 23:04 | Inpatient (IN) | payer OTHER ==
[~2017-09-12] VITALS: Ht 172.7 cm; Wt 90.8 kg
[2017-09-12 23:19] VITALS: BP_SYST 160
[2017-09-12 23:44] LABS: BILIRUBIN,URINE NEGATIVE (NEGATIVE); CLARITY/URINE CLEAR (CLEAR); COLOR,URINE YELLOW (YELLOW); GLUCOSE,URINE NEGATIVE (NEGATIVE); KETONES,URINE NEGATIVE (NEGATIVE); LEUKOCYTE ESTERASE ,URINE 1+ (NEGATIVE); NITRITE, URINE NEGATIVE (NEGATIVE); PROTEIN URINE NEGATIVE (NEGATIVE); UROBILINOGEN,URINE 0.2 (0.2-1.0)
[2017-09-12 23:48] LABS: BLOOD, URINE TRACE (NEGATIVE)
[2017-09-12 23:59] LABS: BACTERIA,URINE MODERATE /HPF (None Seen); RBC,URINE 0-3 /HPF (0-3)
[2017-09-13] MEDS ORDERED: NACL 0.9% 1,000 ML IV ONE
[2017-09-13] MEDS ORDERED: cefTRIAXone 1 GM IVPB PREMIX 50 ML IV ONE (00:30)
[2017-09-13 00:56] LABS: BASOPHILS % (AUTO) 0.6 % (0.0-2.0); EOSINOPHILS # (AUTO) 0.1 K/uL (0.0-0.4); EOSINOPHILS % (AUTO) 2.3 % (0.0-4.0); HEMATOCRIT 38.6 % (36-48); HEMOGLOBIN 12.9 g/dL (12.0-16.0); LYMPHOCYTES # (AUTO) 1.2 K/uL (1.0-5.5); LYMPHOCYTES % (AUTO) 23.5 % (20.5-51.5); MEAN CORPUSCULAR HEMOGLOBIN 29 pg (27-31); MEAN CORPUSCULAR HGB CONC 33 % (32-36); MEAN CORPUSCULAR VOLUME 86 fL (79.0-98.0); MONOCYTES # (AUTO) 0.4 K/uL (0.0-1.0); MONOCYTES % (AUTO) 7.6 % (1.7-9.3); NEUTROPHILS # (AUTO) 3.6 K/uL (1.8-7.7); RED CELL DISTRIBUTION WIDTH 13.3 % (9.0-15.0); WHITE BLOOD COUNT (AUTO) 5.3 K/uL (4.8-10.8)
[2017-09-13 01:03] LABS: CALCIUM 8.9 mg/dL (8.4-11.0); CREATININE 0.68 mg/dL (0.55-1.30); POTASSIUM 3.6 mmol/L (3.5-5.1)
[2017-09-13 01:14] LABS: ALBUMIN 3.6 g/dL (3.4-4.8); PLATELET COUNT (AUTO) 92 K/uL (130-430); TOTAL BILIRUBIN 0.6 mg/dL (0.0-1.0)
[2017-09-13] MEDS ORDERED: LEVO100T PO (02:14)
[2017-09-13] MEDS: NACL 0.9% 1,000 ML IV SCH (02:31)
[2017-09-13] MEDS: LEVOFLOXACIN 500 MG/D5W 100 ML IV SCH (02:45)
[2017-09-13 02:55] VITALS: BP_SYST 151
[2017-09-13] MEDS ORDERED: LEVOFLOXACIN 500 MG/D5W 100 ML IV ONE (03:24)
[2017-09-13] MEDS ORDERED: metroNIDAZOLE 500 mg/NS 100 ML IV ONE (03:25)
[2017-09-13 04:00] VITALS: BP_SYST 146
[2017-09-13] MEDS: metroNIDAZOLE 500 mg/NS 100 ML IV SCH ×3 (05:47→21:59)
[2017-09-13] MEDS: LEVOTHYROXINE SODIUM 0.1 MG TABLET PO SCH (07:46)
[2017-09-13 08:00] VITALS: BP_SYST 144
[2017-09-13 12:13] VITALS: BP_SYST 154
[2017-09-13 12:36] LABS: AMYLASE 17 U/L (0-100); LIPASE 204 U/L (73-393)
[2017-09-13 17:02] VITALS: BP_SYST 137
[2017-09-13 20:00] VITALS: BP_SYST 136
[2017-09-14 00:19] VITALS: BP_SYST 151
[2017-09-14] MEDS: NACL 0.9% 1,000 ML IV SCH (01:16)
[2017-09-14] MEDS: LEVOFLOXACIN 500 MG/D5W 100 ML IV SCH (02:45)
[2017-09-14 04:31] VITALS: BP_SYST 140
[2017-09-14] MEDS: metroNIDAZOLE 500 mg/NS 100 ML IV SCH (06:02)
[2017-09-14] MEDS: LEVOTHYROXINE SODIUM 0.1 MG TABLET PO SCH (06:03)
[2017-09-14] MEDS ORDERED: DIATR MEGLU/DIATRIZ SOD 30 ML SOLUTION PO ONE (06:54)
[2017-09-14 07:12] LABS: ALBUMIN 3.3 g/dL (3.4-4.8); BILIRUBIN,DIRECT 0.2 mg/dL (0.0-0.3); TOTAL BILIRUBIN 0.8 mg/dL (0.0-1.0)
[2017-09-14 09:01] VITALS: BP_SYST 140
[2017-09-14] MEDS ORDERED: IOHEXOL 100 ML IV ONE (09:20)
[2017-09-14 11:11] LABS: HEPATITIS A AB, IgM Negative (Negative); HEPATITIS B CORE AB, IgM Negative (Negative); HEPATITIS B SURFACE AG Negative (Negative)
[2017-09-14 12:40] VITALS: BP_SYST 140
[2017-09-14] MEDS ORDERED: LEVO500T20 PO (12:50)
[2017-09-14] MEDS ORDERED: METR500T PO (12:51)
[2017-09-14 13:09] VITALS: BP_SYST 143
[2017-09-17 08:16] LABS: CEA 0.5 ng/mL (0.0-4.7)
== END 2017-09-14 13:32 | disposition home or self-care (01) | DRG 445 ==
LOC: SED 23:04 → STU 09-13 02:31 → SMU 09-13 10:23
PROVIDERS: ADMIT Internal Medicine Hospice and Palliative Medicine; ATTEND Internal Medicine Hospice and Palliative Medicine
DX: K80.20 Calculus of gallbladder without cholecystitis without obstruction (principal); N39.0 Urinary tract infection, site not specified; K76.6 Portal hypertension; K65.4 Sclerosing mesenteritis; J98.11 Atelectasis; E04.9 Nontoxic goiter, unspecified; E66.9 Obesity, unspecified; E89.0 Postprocedural hypothyroidism; M77.9 Enthesopathy, unspecified; N28.89 Other specified disorders of kidney and ureter; R16.1 Splenomegaly, not elsewhere classified; R91.1 Solitary pulmonary nodule; Z68.30 Body mass index [BMI] 30.0-30.9, adult
CPT/HCPCS: 36415; 76700-TC; 78226; 80053; 80074; 80076; 81000-TC; 82105; 82150-TC; 82378; 83690-TC; 85025; 86301; 87086; 96365; 96366; 99285; A9537; J0696; J1956; J3490; J7030; Q9964; Q9967

== ENCOUNTER 2017-12-13 22:02 | Emergency (ER) | payer OTHER ==
[~2017-12-13] VITALS: Ht 172.7 cm; Wt 89.4 kg
[~2017-12-13 22:02] MED LIST changes: +LEVO100T PO; +LEVO500T20 PO; -LISI10TA5 PO; +METR500T PO
[2017-12-13 22:05] VITALS: BP_SYST 157
[2017-12-13] MEDS ORDERED: NACL 0.9% 1,000 ML IV ONE (22:45)
[2017-12-13] MEDS ORDERED: ASPIRIN 81 MG TAB.CHEW PO ONE (22:45)
[2017-12-13 23:17] LABS: BASOPHILS % (AUTO) 0.6 % (0.0-2.0); EOSINOPHILS # (AUTO) 0.1 K/uL (0.0-0.4); EOSINOPHILS % (AUTO) 1.7 % (0.0-4.0); HEMATOCRIT 39.5 % (36-48); HEMOGLOBIN 13.4 g/dL (12.0-16.0); LYMPHOCYTES % (AUTO) 17.9 % (20.5-51.5); MEAN CORPUSCULAR HEMOGLOBIN 29 pg (27-31); MEAN CORPUSCULAR HGB CONC 34 % (32-36); MEAN CORPUSCULAR VOLUME 85 fL (79.0-98.0); MONOCYTES # (AUTO) 0.4 K/uL (0.0-1.0); MONOCYTES % (AUTO) 6.5 % (1.7-9.3); NEUTROPHILS % (AUTO) 73.3 % (40.0-70.0); PLATELET COUNT (AUTO) 75 K/uL (130-430); RED BLOOD CELL COUNT(AUTO) 4.66 MIL/uL (4.2-6.2); RED CELL DISTRIBUTION WIDTH 13.7 % (9.0-15.0); WHITE BLOOD COUNT (AUTO) 5.5 K/uL (4.8-10.8)
[2017-12-13 23:25] LABS: CALCIUM 9.4 mg/dL (8.4-11.0); CREATININE 0.73 mg/dL (0.55-1.30); INR 1.1 (0.8-1.2); POTASSIUM 4.4 mmol/L (3.5-5.1); PROTHROMBIN TIME 10.9 SECS (9.5-12.5)
[2017-12-13 23:29] LABS: ALBUMIN 3.9 g/dL (3.4-4.8); TOTAL BILIRUBIN 0.8 mg/dL (0.0-1.0)
[2017-12-14 01:00] VITALS: BP_SYST 150
[2017-12-14] MEDS ORDERED: MAG HYDROX/AL HYDROX/SIMETH 30 ML, LIDOCAINE VISCOUS 2% 15ML (PO) 10 ML, BELLADONNA ALK... PO ONE ×3 (01:00)
== END 2017-12-14 01:00 | disposition home or self-care (01) ==
LOC: SED 22:02
DX: G89.18 Other acute postprocedural pain (principal); I10 Essential (primary) hypertension; Z90.49 Acquired absence of other specified parts of digestive tract; Z79.899 Other long term (current) drug therapy
CPT/HCPCS: 36415; 71045; 80053; 83880; 84484; 85025; 85379; 85610; 93005 ×2; 99285; J2001

== ENCOUNTER 2018-05-30 17:51 | Emergency (ER) | payer OTHER ==
[~2018-05-30] VITALS: Ht 172.7 cm; Wt 87.5 kg
[2018-05-30 17:55] VITALS: BP_SYST 164
[2018-05-30 18:33] LABS: HEMATOCRIT 44.8 % (36-48); MEAN CORPUSCULAR HEMOGLOBIN 31 pg (27-31); MEAN CORPUSCULAR HGB CONC 34 % (32-36); MEAN CORPUSCULAR VOLUME 91 fL (79.0-98.0); PLATELET COUNT (AUTO) 380 K/uL (130-430); RED CELL DISTRIBUTION WIDTH 15.1 % (9.0-15.0); WHITE BLOOD COUNT (AUTO) 12.2 K/uL (4.8-10.8)
[2018-05-30 18:34] LABS: CREATININE 0.94 mg/dL (0.55-1.30); POTASSIUM 4.9 mmol/L (3.5-5.1)
[2018-05-30 18:39] LABS: BAND % (MANUAL) 0 % (0-6); BASOPHILS % (MANUAL) 0 % (0-2); EOSINOPHILS % (MANUAL) 4 % (0-7); LYMPHOCYTES % (MANUAL) 31 % (20-46); MONOCYTES % (MANUAL) 7 % (0-11)
[2018-05-30 19:05] VITALS: BP_SYST 164
== END 2018-05-30 19:05 | disposition home or self-care (01) ==
LOC: SED 17:51
DX: E87.6 Hypokalemia (principal); I10 Essential (primary) hypertension; Z90.49 Acquired absence of other specified parts of digestive tract; Z85.07 Personal history of malignant neoplasm of pancreas; Z85.05 Personal history of malignant neoplasm of liver; Z79.899 Other long term (current) drug therapy
CPT/HCPCS: 36415; 80048; 85007; 85027; 93005; 99284; 99285

== ENCOUNTER 2018-06-28 09:38 | Inpatient (IN) | payer OTHER ==
[~2018-06-28] VITALS: Ht 172.7 cm; Wt 86.2 kg
[2018-06-28 09:53] VITALS: BP_SYST 141
--- NOTE | 2018-06-28 10:00 | NUR ---
Pt placed to ER bed 07, to gown, report given to BERTA Dyer.
--- NOTE | 2018-06-28 10:10 | NUR ---
Urine collected and sent to lab.
--- NOTE | 2018-06-28 10:15 | NUR ---
Pt presents to ER c/o low abdominal pain 7/10 on pain scale. Pt reports that pain began last Saturday when she received steroid shot on shoulder. Pt also c/o nausea but denies vomiting. Pt denies chest pain or sob. Pt in no acute respiratory distress, speaking full sentences, respirations even and unlabored, AOX4.
--- NOTE | 2018-06-28 10:30 | NUR ---
ER at bedside examining patient.
[2018-06-28 10:55] LABS: BASOPHILS # (AUTO) 0.1 K/uL (0.0-0.2); BASOPHILS % (AUTO) 0.7 % (0.0-2.0); EOSINOPHILS # (AUTO) 0.4 K/uL (0.0-0.4); EOSINOPHILS % (AUTO) 4.4 % (0.0-4.0); HEMOGLOBIN 15.2 g/dL (12.0-16.0); LYMPHOCYTES # (AUTO) 2.3 K/uL (1.0-5.5); LYMPHOCYTES % (AUTO) 23.1 % (20.5-51.5); MEAN CORPUSCULAR HEMOGLOBIN 32 pg (27-31); MEAN CORPUSCULAR HGB CONC 34 % (32-36); MEAN CORPUSCULAR VOLUME 94 fL (79.0-98.0); MONOCYTES # (AUTO) 1.3 K/uL (0.0-1.0); MONOCYTES % (AUTO) 12.9 % (1.7-9.3); NEUTROPHILS # (AUTO) 5.9 K/uL (1.8-7.7); NEUTROPHILS % (AUTO) 58.9 % (40.0-70.0); PLATELET COUNT (AUTO) 366 K/uL (130-430); RED BLOOD CELL COUNT(AUTO) 4.79 MIL/uL (4.2-6.2); RED CELL DISTRIBUTION WIDTH 13.9 % (9.0-15.0)
[2018-06-28 10:56] LABS: BILIRUBIN,URINE NEGATIVE (NEGATIVE); BLOOD, URINE NEGATIVE (NEGATIVE); CLARITY/URINE CLEAR (CLEAR); COLOR,URINE YELLOW (YELLOW); GLUCOSE,URINE NEGATIVE (NEGATIVE); KETONES,URINE NEGATIVE (NEGATIVE); LEUKOCYTE ESTERASE ,URINE 1+ (NEGATIVE); NITRITE, URINE NEGATIVE (NEGATIVE); PROTEIN URINE NEGATIVE (NEGATIVE); UROBILINOGEN,URINE 0.2 (0.2-1.0)
[2018-06-28 11:00] LABS: CALCIUM 9.2 mg/dL (8.4-11.0); CREATININE 0.78 mg/dL (0.55-1.30); POTASSIUM 3.7 mmol/L (3.5-5.1)
[2018-06-28 11:01] LABS: PROTHROMBIN TIME 10.4 SECS (9.5-12.5)
[2018-06-28 11:04] LABS: ALBUMIN 3.4 g/dL (3.4-4.8); TOTAL BILIRUBIN 0.8 mg/dL (0.0-1.0)
[2018-06-28 11:17] LABS: BACTERIA,URINE FEW /HPF (None Seen); RBC,URINE 0-3 /HPF (0-3)
[2018-06-28 11:18] LABS: MUCUS,URINE None Seen /LPF (None Seen); YEAST,URINE None Seen /HPF (None Seen)
--- NOTE | 2018-06-28 11:35 | NUR ---
Patient transported to radiology via wheelchair, accompanied by rad staff.
[2018-06-28] MEDS ORDERED: PIPERACILLIN/TAZO 3.375 GM in NS 50 ML IV ONE (12:45)
[2018-06-28] MEDS ORDERED: NACL 0.9% 1,000 ML IV ONE ×3 (12:45→13:30)
[2018-06-28] MEDS ORDERED: PIPERACILLIN/TAZOBACTAM 3.375 GM/VIAL (ZOSYN) IV ONE (12:56)
--- NOTE | 2018-06-28 13:04 | NUR ---
Timi layton in [facility] - 06/28/18 at 1323 by [email or web address] Laboratory called to confirm that blood cultures were drawn, lab[address] confirmed that blood cultures were drawn at 1030.
--- NOTE | 2018-06-28 13:04 | NUR ---
Laboratory called to confirm that blood cultures were drawn, spoke with Afsaneh who confirmed that blood cultures were drawn at 1035 and 1045.
--- NOTE | 2018-06-28 13:10 | NUR ---
Dr. David at bedside speaking to pt discussing lab and diagnostic results.
--- NOTE | 2018-06-28 13:13 | NUR ---
Medication reconciliation completed with information provided by pt. Any prior medication reconciliation on file was reviewed and corrected.
[2018-06-28] MEDS ORDERED: LEVO88TA2 PO (13:17)
[2018-06-28] MEDS ORDERED: TOPXL100 PO (13:17)
--- NOTE | 2018-06-28 13:24 | NUR ---
Patient will be admitted to care of Dr. Garrido. Admitted to medsurg unit. Will go to room 114b. Belongings list completed. Summary report printed. Report will be given at bedside. Transfer to [facility]. IV present no sign or symptom of infiltration.
[2018-06-28] MEDS ORDERED: NS 500 ML IV ONE (13:30)
--- NOTE | 2018-06-28 13:43 | NUR ---
ADMISSION: Received from ER on a gurney with the diagnosis with diagnosis of abdominal pain. Alert and oriented x4, accompanied by . Oriented to room and hospital routine. Call light within reach.
[2018-06-28 13:57] VITALS: BP_SYST 155
[2018-06-28] MEDS ORDERED: DOCUSATE SODIUM 250 MG CAPSULE PO ONE (16:15)
[2018-06-28] MEDS ORDERED: LEVOFLOXACIN 500 MG/D5W 100 ML IV ONE (16:15)
--- NOTE | 2018-06-28 16:20 | NUR ---
Admit Note: Patient sitting in bed resting, at bedside. Breathing is even and unlabored with no distress noted. IV patent and intact with IV fluids running per MD order. Patient denies pain and discomfort. Safety precautions in place; bed in lowest position, wheels locked, side rails x3, bed alarm activated and call light within reach. Will continue to monitor.
[2018-06-28 16:32] VITALS: BP_SYST 155
--- NOTE | 2018-06-28 18:19 | NUR ---
Paging Dr. Garrido: Paging Dr. Garrido for pain medication. Awaiting callback.
--- NOTE | 2018-06-28 18:37 | NUR ---
Spoke to Dr. Gibson: Spoke to Dr. Gibson, orders received for pain medication. Orders to be entered by RN.
--- NOTE | 2018-06-28 18:43 | NUR ---
Closing Note: Patient sitting in chair resting. Patient complains of lower back cramps and abdominal pain. Will administer PRN pain medication. Breathing is even and unlabored with no distress noted. IV patent and intact running IV fluids per MD order. Safety precautions in and call light within reach. All needs met. Will endorse plan of care to NOC, nurse.
[2018-06-28] MEDS ORDERED: MORPHINE 2 MG/ML INJ. SYRINGE IVP PRN ×2 (18:45→20:45)
--- NOTE | 2018-06-28 18:55 | NUR ---
paged paged for Dr Gibson, dialed . s/w
--- NOTE | 2018-06-28 18:56 | NUR ---
Patient Refused Pain medication: Patient refused Morphine, stated she wants something less invasive. Will call Dr. Gibson for alternative pain meds.
--- NOTE | 2018-06-28 19:15 | NUR ---
OPENING NOTE RECEIVED PT ENDORSEMENT REPORT FROM DAY SHIFT NURSE AT BEDSIDE. PT IS RESTING IN BED WITH EYES OPEN, AOX4, NO S/S OF SOB OR DISTRESS. PT IS ON RA. PT ABLE TO AMBULATE WELL WITH A STEADY GAIT. IVF INFUSING WELL, PER ORDERS. DAY SHIT NURSE INFORMED PT ORDERED MORPHINE 2 MG IVP PRN FOR PAIN, PT VERBALIZED HER REFUSAL TO TAKE MORPHINE, MD PAGED FOR NEW ORDERS, WAITING FOR MD'S RETURN CALL. DISCUSSED POC WITH PT, PT VERBALIZED UNDERSTANDING. PT INSTRUCTED HOW TO USE CALL LIGHT AND ROOM PHONE, PT VERBALIZED UNDERSTANDING. ISOLATION PRECAUTIONS, CONTACT PRECAUTION, IN PLACE PER PROTOCOL FOR MRSA OF THE WOUND. SAFETY MEASURES IN PLACE, CALL LIGHT AND PHONE WITHIN REACH, BED IN LOWEST POSITION, BED WHEELS LOCKED, SIDE RAILS UP X2, BED ALARM ON, BEDSIDE TABLE WITHIN REACH. NO FURTHER NEEDS AT THIS TIME. WILL CONTINUE TO MONITOR PT.
[2018-06-28] MEDS ORDERED: OLANZapine 10 MG TABLET PO PRN (19:45)
--- NOTE | 2018-06-28 20:01 | NUR ---
paged paged for Dr Gibson, dialed . s/w
[2018-06-28 20:20] VITALS: BP_SYST 138
--- NOTE | 2018-06-28 20:20 | NUR ---
RN ROUNDS PT SITTING ON CHAIR BY BEDSIDE, PT'S PRESENT. CHEST RISE PAMELA AND UNLABORED. NO DISTRESS NOTED. NO SOB NOTED. IVF INFUSING WELL. VITAL SIGNS WNL. NO FURTHER NEEDS AT THIS TIME. SAFETY MEASURES IN PLACE. PT REFUSES BED ALARM AT THIS TIME. EDUCATED PT ON IMPORTANCE OF BED ALARM FOR PT SAFETY, PT REFUSED. WILL CONTINUE TO MONITOR PT.
[2018-06-28] MEDS ORDERED: CYCLOBENZAPRINE HCL 10 MG TABLET (FLEXERIL) PO PRN (20:30)
--- NOTE | 2018-06-28 20:32 | NUR ---
MD GOODSON RETURNED CALL NEW ORDER FLEXERIL 10 MG PO Q 8 HRS PRN MUSCLE PAIN MORPHINE 1 MG IVP Q 3HRS PRN SEVERE PAIN SYNTHROID 88 MCG CONTINUED HOME MEDICATION
[2018-06-28] MEDS: DOCUSATE SODIUM 250 MG CAPSULE PO SCH (20:45)
--- NOTE | 2018-06-28 20:47 | NUR ---
RN ROUNDS PT RESTING IN BED WITH EYES OPEN. AT BEDSIDE. NO S/S OF SOB OR DISTRESS. IVF INFUSING WELL. INFORMED PT OF MD'S NEW ORDERS: MORPHINE 1 MG IVP Q3 HRS PRN SEVER PAIN, FLEXERIL 10 MG PO Q8HRS PRN MUSCLE PAIN AND SYNTHOROID 88 MCG HOME MEDICATION CONTINUED. PT HAPPY WITH NEW ORDERS. INFORMED PT THAT ALTHOUGH SHE DOES NOT WANT TO TAKE MORPHINE AT THIS TIME, MEDICATION IS AVAILABLE. SCHEDULED COLACE ADMINISTERED PER ORDERES AND FLEXERIL ADMINISTERED PRN FOR MUSCLE PAIN, PT STATED 5/10 PAIN AT THIS TIME. WILL MONITOR MEDICATION EFFECTIVENESS. NO FURTHER NEEDS AT THIS TIME. SAFETY MEASURES IN PLACE, CALL LIGHT AND PHONE WITHIN REACH, BED IN LOWEST POSITION, BED WHEELS LOCKED, SIDE RAILS UP X2, BEDSIDE TABLE WITHIN REACH. NO FURTHER NEEDS AT THIS TIME. WILL CONTINUE TO MONITOR PT.
--- NOTE | 2018-06-28 22:35 | NUR ---
RN ROUNDS PT RESTING IN BED WITH EYES OPEN. AT BEDSIDE. NO S/S OF SOB OR DISTRESS. IVF INFUSING WELL. SAFETY MEASURES IN PLACE, CALL LIGHT AND PHONE WITHIN REACH, BED IN LOWEST POSITION, BED WHEELS LOCKED, SIDE RAILS UP X2, BEDSIDE TABLE WITHIN REACH. NO FURTHER NEEDS AT THIS TIME. WILL CONTINUE TO MONITOR PT.
--- NOTE | 2018-06-29 00:13 | NUR ---
RN ROUNDS PT RESTING IN BED WITH EYES CLOSED. NO S/S OF SOB OR DISTRESS. IVF INFUSING WELL. SAFETY MEASURES IN PLACE, CALL LIGHT AND PHONE WITHIN REACH, BED IN LOWEST POSITION, BED WHEELS LOCKED, SIDE RAILS UP X2, BEDSIDE TABLE WITHIN REACH. NO NEEDS AT THIS TIME. WILL CONTINUE TO MONITOR PT.
[2018-06-29 00:25] VITALS: BP_SYST 145
--- NOTE | 2018-06-29 03:00 | NUR ---
RN ROUNDS PT RESTING IN BED WITH EYES CLOSED. AT BEDSIDE. NO S/S OF SOB OR DISTRESS. IVF INFUSING WELL. SAFETY MEASURES IN PLACE, CALL LIGHT AND PHONE WITHIN REACH, BED IN LOWEST POSITION, BED WHEELS LOCKED, SIDE RAILS UP X2, BEDSIDE TABLE WITHIN REACH. NO NEEDS AT THIS TIME. WILL CONTINUE TO MONITOR PT.
--- NOTE | 2018-06-29 04:15 | NUR ---
RN ROUNDS PT RESTING IN BED WITH EYES CLOSED. AT BEDSIDE. PT'S CHEST RISE EVEN AND UNLABORED. NO SOB NOTED. NO DISTRESS NOTED. IVF INFUSING WELL. NO NEEDS AT THIS TIME. SAFETY MEASURES IN PLACE. WILL CONTINUE TO MONITOR PT.
[2018-06-29] MEDS ORDERED: LEVOTHYROXINE SODIUM 0.088 MG TABLET PO SCH (07:00)
--- NOTE | 2018-06-29 07:45 | NUR ---
CLOSING NOTE ENDORSED PT REPORT TO DAY SHIFT NURSE. PT IS RESTING IN BED WITH EYES OPEN, AOX4, NO S/S OF SOB OR DISTRESS. PT IS ON RA. PT ABLE TO AMBULATE WELL WITH A STEADY GAIT. IVF INFUSING WELL, PER ORDERS. DISCUSSED POC WITH PT, PT VERBALIZED UNDERSTANDING. PT INSTRUCTED HOW TO USE CALL LIGHT AND ROOM PHONE, PT VERBALIZED UNDERSTANDING. SAFETY MEASURES IN PLACE, CALL LIGHT AND PHONE WITHIN REACH, BED IN LOWEST POSITION, BED WHEELS LOCKED, SIDE RAILS UP X2, BED ALARM ON, BEDSIDE TABLE WITHIN REACH. NO FURTHER NEEDS AT THIS TIME.
[2018-06-29 08:00] VITALS: BP_SYST 131
--- NOTE | 2018-06-29 08:00 | NUR ---
OPENING NOTE PATIENT AWAKE, ALERT AND ORIENTED X4, SITTING IN BEDSIDE CHAIR, AT SIDE, NO S/S OF ACUTE DISTRESS, PT IS NPO AT THIS TIME DUE TO COMPLAINT OF ABDOMINAL PAIN. PT STATES PAIN IS A 5/10 BUT IS REFUSING PAIN MEDICATION, PT STATES SHE FEELS SHE MAY BM BACKED UP, PT MADE AWARE THAT RN WILL DISCUSS THIS WITH MD. IV TO RAC NOTED 20G, PT ORIENTED TO PLAN OF CARE, VERBALIZED UNDERSTANDING. CALL LIGHT WITHIN REACH, SAFETY PRECAUTIONS IN PLACE.
[2018-06-29] MEDS: DOCUSATE SODIUM 250 MG CAPSULE PO SCH (08:04)
[2018-06-29] MEDS ORDERED: PANTOPRAZOLE SODIUM 40 MG TAB PO SCH (09:00)
[2018-06-29] MEDS ORDERED: LEVOFLOXACIN 500 MG/D5W 100 ML IV SCH (09:00)
--- NOTE | 2018-06-29 09:00 | NUR ---
PT REFUSED SYNTHROID MEDICATION PROVIDED BY HOSPITAL, STATING THAT IS THE GENERIC KIND AND SHE DOES NOT LIKE THAT. PT ALSO REFUSED PROTONIX DESPITE EDUCATION
--- NOTE | 2018-06-29 09:40 | NUR ---
DR MATTHEWS SEEN ON UNIT, MADE AWARE OF PATIENT STATUS AND THAT IS REQUESTING SOMETHING TO HELP WITH A BM, MD ORDERED MINERAL OIL AND A FLEET ENEMA, PT UPDATED ON PLAN OF CARE AND IS AGREEABLE
[2018-06-29] MEDS ORDERED: MINERAL OIL 30 ML UDC PO ONE (09:45)
[2018-06-29] MEDS ORDERED: NA PHOS,M-B/NA PHOS,DI-BA 118 ML (FLEET ENEMA) RC ONE (09:45)
--- NOTE | 2018-06-29 11:15 | NUR ---
FLEET ENEMA GIVEN, STUDENT NURSE AND INSTRUCTOR AT BEDSIDE TO PERFORM FLEET ENEMA,. PT IS EDUCATED ON WHAT TO EXPECT. 1120- PATIENT STATED SHE HAD TO HAVE BM, ASSISTED TO RESTROOM PT HAD LARGE BM, YELLOW BROWN COLOR, NORMAL IN TEXTURE MD MADE AWARE
--- NOTE | 2018-06-29 11:25 | NUR ---
RECEIVED DISCHARGE ORDER FROM DR MATTHEWS, PT EDUCATED REGARDING STOOL SOFTNERS, AND ANTIBIOTIC THERAPY
[2018-06-29 11:33] VITALS: BP_SYST 146
[2018-06-29] MEDS ORDERED: LEVO500T20 PO (11:38)
[2018-06-29] MEDS ORDERED: DOCU-144 PO (11:39)
--- NOTE | 2018-06-29 12:30 | NUR ---
D/C Patient Patient given medication reconciliation form and D/C instructions. Exit Care provided. Patient verbalized understanding. MD discussed with patient the results and treatment provided. Ambulatory with steady gait for discharge to home. Patient in stable condition, ID band removed. IV catheter removed, intact and dressing applied, no active bleeding. Rx of LEVAQUIN AND COLACE given. Patient educated on pain management. All belongings sent with patient.
== END 2018-06-29 12:30 | disposition home or self-care (01) | DRG 690 ==
LOC: SED 09:38 → SMU 12:59
PROVIDERS: ADMIT Internal Medicine Hospice and Palliative Medicine; ATTEND Internal Medicine Hospice and Palliative Medicine
DX: N39.0 Urinary tract infection, site not specified (principal); I10 Essential (primary) hypertension; E07.9 Disorder of thyroid, unspecified; Z90.81 Acquired absence of spleen; Z90.49 Acquired absence of other specified parts of digestive tract; Z88.8 Allergy status to other drugs, medicaments and biological substances; Z85.05 Personal history of malignant neoplasm of liver; Z85.07 Personal history of malignant neoplasm of pancreas
CPT/HCPCS: 36415; 71045; 80053; 81000-TC; 83605; 83690-TC; 85025; 85610-TC; 87040-TC; 93005; 96361; 96365; 99285; J1956; J2270; J2543; J7030; J7040

== ENCOUNTER 2018-09-20 02:23 | Inpatient (IN) | payer OTHER ==
[~2018-09-20] VITALS: Ht 170.2 cm; Wt 84.4 kg
[~2018-09-20 02:23] MED LIST changes: +DOCU-144 PO; -LEVO100T PO; +LEVO88TA2 PO; -METR500T PO; +TOPXL100 PO
[2018-09-20 02:29] VITALS: BP_SYST 132
[2018-09-20] MEDS ORDERED: NACL 0.9% 1,000 ML IV ONE ×3 (02:57→09:15)
[2018-09-20 03:38] LABS: BASOPHILS # (AUTO) 0.2 K/uL (0.0-0.2); BASOPHILS % (AUTO) 1.5 % (0.0-2.0); EOSINOPHILS # (AUTO) 0.1 K/uL (0.0-0.4); EOSINOPHILS % (AUTO) 0.7 % (0.0-4.0); LYMPHOCYTES % (AUTO) 16.3 % (20.5-51.5); MEAN CORPUSCULAR HEMOGLOBIN 32 pg (27-31); MEAN CORPUSCULAR HGB CONC 33 % (32-36); MEAN CORPUSCULAR VOLUME 95 fL (79.0-98.0); MONOCYTES # (AUTO) 1.3 K/uL (0.0-1.0); NEUTROPHILS # (AUTO) 8.5 K/uL (1.8-7.7); NEUTROPHILS % (AUTO) 70.5 % (40.0-70.0); PLATELET COUNT (AUTO) 289 K/uL (130-430); RED BLOOD CELL COUNT(AUTO) 4.76 MIL/uL (4.2-6.2); WHITE BLOOD COUNT (AUTO) 12.1 K/uL (4.8-10.8)
[2018-09-20 03:45] LABS: CALCIUM 9.6 mg/dL (8.4-11.0); CREATININE 0.78 mg/dL (0.55-1.30); POTASSIUM 3.9 mmol/L (3.5-5.1)
[2018-09-20 03:49] LABS: INR 1.1 (0.8-1.2); PROTHROMBIN TIME 11.1 SECS (9.5-12.5)
[2018-09-20 03:50] LABS: ALBUMIN 3.8 g/dL (3.4-4.8); TOTAL BILIRUBIN 1.8 mg/dL (0.0-1.0)
[2018-09-20 03:59] LABS: RED CELL DISTRIBUTION WIDTH 13.1 % (9.0-15.0)
[2018-09-20 04:56] LABS: BILIRUBIN,URINE NEGATIVE (NEGATIVE); BLOOD, URINE NEGATIVE (NEGATIVE); COLOR,URINE YELLOW (YELLOW); GLUCOSE,URINE NEGATIVE (NEGATIVE); KETONES,URINE TRACE (NEGATIVE); LEUKOCYTE ESTERASE ,URINE 2+ (NEGATIVE); NITRITE, URINE NEGATIVE (NEGATIVE); PH,URINE 5.5 (5.0-8.0); PROTEIN URINE NEGATIVE (NEGATIVE); UROBILINOGEN,URINE 0.2 (0.2-1.0)
[2018-09-20 05:02] LABS: CLARITY/URINE SLIGHTLY HAZY (CLEAR)
[2018-09-20 05:05] LABS: BACTERIA,URINE FEW /HPF (None Seen); RBC,URINE 0-3 /HPF (0-3)
[2018-09-20] MEDS ORDERED: IOHEXOL 100 ML IV ONE (05:46)
[2018-09-20] MEDS ORDERED: PRO40 PO (06:04)
[2018-09-20] MEDS ORDERED: cefTRIAXone 1 GM VIAL ONE (06:13)
[2018-09-20] MEDS ORDERED: cefTRIAXone 1 GM in D5W 50 ML IV ONE (06:15)
[2018-09-20] MEDS ORDERED: VANCOMYCIN HCL 1,000 MG in NS 250 ML IV ONE (06:15)
[2018-09-20] MEDS ORDERED: VANCOMYCIN HCL 1000 MG/VIAL IV ONE (06:19)
[2018-09-20] MEDS ORDERED: ACETAMINOPHEN 325 MG TABLET PO ONE (07:45)
[2018-09-20] MEDS ORDERED: ONDANSETRON 4 MG ODT TAB PO ONE (07:45)
[2018-09-20] MEDS ORDERED: ACETAMINOPHEN 325 MG TABLET PO PRN (09:15)
[2018-09-20] MEDS ORDERED: MORPHINE 2 MG/ML INJ. SYRINGE IVP PRN (09:15)
[2018-09-20] MEDS ORDERED: ONDANSETRON HCL 4 MG/2 ML VIAL IVP PRN (09:15)
[2018-09-20 10:00] VITALS: BP_SYST 139
[2018-09-20] MEDS: NACL 0.9% 1,000 ML IV SCH ×2 (10:53→21:48)
[2018-09-20] MEDS ORDERED: KETOROLAC TROMETHAMINE 15 MG VIAL IM PRN (11:30)
[2018-09-20 12:09] VITALS: BP_SYST 143
[2018-09-20] MEDS ORDERED: metroNIDAZOLE 500 mg/NS 100 ML IV ONE (16:00)
[2018-09-20] MEDS ORDERED: PANTOPRAZOLE SODIUM 40 MG/VIAL (PROTONIX) IVP ONE (16:00)
[2018-09-20 18:08] VITALS: BP_SYST 135
[2018-09-20 20:00] VITALS: BP_SYST 150
[2018-09-20] MEDS: KETOROLAC TROMETHAMINE 15 MG VIAL IVP PRN (21:48)
[2018-09-20] MEDS: metroNIDAZOLE 500 mg/NS 100 ML IV SCH (21:50)
[2018-09-21] VITALS: BP_SYST 140
[2018-09-21] MEDS: NACL 0.9% 1,000 ML IV SCH (05:38)
[2018-09-21 06:03] LABS: PROTHROMBIN TIME 10.5 SECS (9.5-12.5)
[2018-09-21 06:17] LABS: CALCIUM 8.4 mg/dL (8.4-11.0); CREATININE 0.64 mg/dL (0.55-1.30); POTASSIUM 3.9 mmol/L (3.5-5.1)
[2018-09-21 06:21] LABS: ALBUMIN 2.7 g/dL (3.4-4.8)
[2018-09-21] MEDS: metroNIDAZOLE 500 mg/NS 100 ML IV SCH ×3 (06:46→21:07)
[2018-09-21 07:52] LABS: BASOPHILS # (AUTO) 0.1 K/uL (0.0-0.2); BASOPHILS % (AUTO) 0.6 % (0.0-2.0); EOSINOPHILS # (AUTO) 0.3 K/uL (0.0-0.4); EOSINOPHILS % (AUTO) 2.6 % (0.0-4.0); HEMATOCRIT 36.7 % (36-48); HEMOGLOBIN 12.3 g/dL (12.0-16.0); LYMPHOCYTES # (AUTO) 1.6 K/uL (1.0-5.5); LYMPHOCYTES % (AUTO) 15.1 % (20.5-51.5); MEAN CORPUSCULAR HEMOGLOBIN 31 pg (27-31); MEAN CORPUSCULAR HGB CONC 34 % (32-36); MEAN CORPUSCULAR VOLUME 93 fL (79.0-98.0); MONOCYTES # (AUTO) 1.4 K/uL (0.0-1.0); MONOCYTES % (AUTO) 13.3 % (1.7-9.3); PLATELET COUNT (AUTO) 227 K/uL (130-430); RED BLOOD CELL COUNT(AUTO) 3.94 MIL/uL (4.2-6.2); RED CELL DISTRIBUTION WIDTH 13.3 % (9.0-15.0); WHITE BLOOD COUNT (AUTO) 10.4 K/uL (4.8-10.8)
[2018-09-21] MEDS: KETOROLAC TROMETHAMINE 15 MG VIAL IVP PRN ×2 (08:22→16:47)
[2018-09-21] MEDS: PANTOPRAZOLE SODIUM 40 MG/VIAL (PROTONIX) IVP SCH ×2 (08:22→08:27)
[2018-09-21] MEDS: ENOXAPARIN SODIUM 40 MG/0.4 ML SYRINGE SUBCUT SCH (08:26)
[2018-09-21] MEDS: cefTRIAXone 1 GM in D5W 50 ML IV SCH (08:27)
[2018-09-21 08:41] VITALS: BP_SYST 144
[2018-09-21] MEDS ORDERED: LACTULOSE 20 GM/30 ML UDC PO ONE (09:45)
[2018-09-21] MEDS: D5LR 1,000 ML IV SCH ×4 (10:19→21:07)
[2018-09-21 10:24] LABS: NEUTROPHILS % (AUTO) 68.4 % (40.0-70.0)
[2018-09-21 13:54] VITALS: BP_SYST 138
[2018-09-21 17:24] VITALS: BP_SYST 140
[2018-09-21] MEDS: LACTULOSE 20 GM/30 ML UDC PO SCH (21:00)
[2018-09-21 21:16] VITALS: BP_SYST 133
[2018-09-22] VITALS: BP_SYST 165
[2018-09-22] MEDS: KETOROLAC TROMETHAMINE 15 MG VIAL IVP PRN ×2 (00:46→08:37)
[2018-09-22] MEDS: D5LR 1,000 ML IV SCH ×2 (02:07→06:14)
[2018-09-22] MEDS: metroNIDAZOLE 500 mg/NS 100 ML IV SCH (06:15)
[2018-09-22 07:05] LABS: CALCIUM 8.3 mg/dL (8.4-11.0); CREATININE 0.56 mg/dL (0.55-1.30); POTASSIUM 3.2 mmol/L (3.5-5.1)
[2018-09-22 07:44] LABS: BASOPHILS # (AUTO) 0.1 K/uL (0.0-0.2); BASOPHILS % (AUTO) 0.8 % (0.0-2.0); EOSINOPHILS # (AUTO) 0.4 K/uL (0.0-0.4); EOSINOPHILS % (AUTO) 4.6 % (0.0-4.0); HEMATOCRIT 35.8 % (36-48); HEMOGLOBIN 11.8 g/dL (12.0-16.0); LYMPHOCYTES # (AUTO) 1.6 K/uL (1.0-5.5); LYMPHOCYTES % (AUTO) 18.9 % (20.5-51.5); MEAN CORPUSCULAR HEMOGLOBIN 31 pg (27-31); MEAN CORPUSCULAR HGB CONC 33 % (32-36); MEAN CORPUSCULAR VOLUME 93 fL (79.0-98.0); MONOCYTES % (AUTO) 12.2 % (1.7-9.3); NEUTROPHILS # (AUTO) 5.3 K/uL (1.8-7.7); NEUTROPHILS % (AUTO) 63.5 % (40.0-70.0); PLATELET COUNT (AUTO) 216 K/uL (130-430); RED BLOOD CELL COUNT(AUTO) 3.83 MIL/uL (4.2-6.2); RED CELL DISTRIBUTION WIDTH 13.2 % (9.0-15.0); WHITE BLOOD COUNT (AUTO) 8.4 K/uL (4.8-10.8)
[2018-09-22 08:20] VITALS: BP_SYST 156
[2018-09-22] MEDS: PANTOPRAZOLE SODIUM 40 MG/VIAL (PROTONIX) IVP SCH ×2 (08:24→08:37)
[2018-09-22] MEDS: LACTULOSE 20 GM/30 ML UDC PO SCH (08:39)
[2018-09-22] MEDS: cefTRIAXone 1 GM in D5W 50 ML IV SCH (08:43)
[2018-09-22] MEDS: ENOXAPARIN SODIUM 40 MG/0.4 ML SYRINGE SUBCUT SCH (08:44)
[2018-09-22] MEDS ORDERED: cloNIDine HCL 0.1 MG TABLET PO ONE (10:30)
[2018-09-22 12:02] VITALS: BP_SYST 139
[2018-09-22 13:23] VITALS: BP_SYST 139
== END 2018-09-22 14:52 | disposition home or self-care (01) | DRG 439 ==
LOC: SED 02:23 → STU 09:04
PROVIDERS: ADMIT Internal Medicine; ATTEND Internal Medicine
DX: K85.90 Acute pancreatitis without necrosis or infection, unspecified (principal); C25.9 Malignant neoplasm of pancreas, unspecified; C78.7 Secondary malignant neoplasm of liver and intrahepatic bile duct; E89.0 Postprocedural hypothyroidism; I10 Essential (primary) hypertension; K37 Unspecified appendicitis; E31.20 Multiple endocrine neoplasia [MEN] syndrome, unspecified; Z90.49 Acquired absence of other specified parts of digestive tract; Z88.8 Allergy status to other drugs, medicaments and biological substances; Z92.21 Personal history of antineoplastic chemotherapy; Z79.899 Other long term (current) drug therapy; Z92.3 Personal history of irradiation; E86.0 Dehydration; R32 Unspecified urinary incontinence
CPT/HCPCS: 36415; 80048; 80053; 81000-TC; 82150-TC; 83605; 83690-TC; 85025; 85610-TC; 87040-TC; 87086; 87186-TC; 96361; 96365; 96368; 99285; C9113; J0696; J1650; J1885; J3370; J3490; J7030; J7060; J7120; Q0162; Q9967